=== PATIENT | male | born 1945 | race Caucasian/White ===

== ENCOUNTER 2019-02-06 09:32 | Day surgery (SDC) | payer MEDICARE, BC ==
[~2019-02-06 09:32] MED LIST: KETOROLAC TROMETHAMINE 0.45% 4 DROP/0.4 ML DROPERETTE OS PRN
[2019-02-06] MEDS: TROPICAMIDE 1% OPH SOLN 3 ML OS PRN ×3 (09:55→10:15)
[2019-02-06] MEDS: CYCLOPENTOLATE 0.2%/PHENYLEPHRINE 1% OPH SOLN 2 ML OS PRN ×3 (09:55→10:15)
[2019-02-06] MEDS: BESIFLOXACIN HCL 0.6% OPH SUSP 5 ML BOTTLE OS PRN ×4 (09:55→10:45)
[2019-02-06] MEDS: TETRACAINE HCL 0.5% OPH SOLN 4 ML OS PRN ×4 (09:55→10:24)
[2019-02-06] MEDS ORDERED: MIDAZOLAM 2 MG/2 ML INJ ONE (10:12)
[2019-02-06] MEDS ORDERED: ONDANSETRON HCL INJ/PF 4 MG/2 ML SDV ONE (10:12)
[2019-02-06] MEDS ORDERED: FENTANYL CITRATE INJ/PF 100 MCG/2 ML AMPUL ONE (10:13)
[2019-02-06] MEDS: EPINEPHRINE INJ/PF 1 MG/1 ML AMPULE ONE ×2 (10:34)
[2019-02-06] MEDS: LIDOCAINE 1% INJ-PF (10 MG/ML) 30 ML SDV ONE ×2 (10:34)
[2019-02-06] MEDS: CHONDR SU A NA/HYALUR INTRAOC KIT (SURGICARE) ONE ×2 (10:34)
[2019-02-06] MEDS: DORZOLAMIDE HCL 2%/TIMOLOL MALEAT 0.5% OPH SOLN 10 ML OS PRN ×2 (10:45)
[2019-02-06] MEDS: TOBRAMYCIN SULFATE/DEXAMETH OPH OINTMENT 3.5 GM ONE ×2 (10:45)
== END 2019-02-06 11:27 | disposition home or self-care (01) ==
LOC: SC 09:32
PROVIDERS: ATTEND Ophthalmology
DX: H25.12 Age-related nuclear cataract, left eye (principal); E03.9 Hypothyroidism, unspecified; Z85.828 Personal history of other malignant neoplasm of skin; Z79.899 Other long term (current) drug therapy
CPT/HCPCS: 66984; 00142; V2632; J2250; J3490 ×4; A9270; J0171; J3010; J2405; 142

== ENCOUNTER 2019-02-20 08:47 | Day surgery (SDC) | payer MEDICARE, BC ==
[~2019-02-20 08:47] MED LIST changes: +CHONDR SU A NA/HYALUR INTRAOC KIT (SURGICARE) ONE; +EPINEPHRINE INJ/PF 1 MG/1 ML AMPULE ONE; -KETOROLAC TROMETHAMINE 0.45% 4 DROP/0.4 ML DROPERETTE OS PRN; +LIDOCAINE 1% INJ-PF (10 MG/ML) 30 ML SDV ONE
[2019-02-20] MEDS: CYCLOPENTOLATE 0.2%/PHENYLEPHRINE 1% OPH SOLN 2 ML OD PRN ×5 (08:58→09:18)
[2019-02-20] MEDS: BESIFLOXACIN HCL 0.6% OPH SUSP 5 ML BOTTLE OD PRN ×5 (08:58→09:54)
[2019-02-20] MEDS: TROPICAMIDE 1% OPH SOLN 15 ML OD PRN ×5 (08:58→09:18)
[2019-02-20] MEDS: KETOROLAC TROMETHAMINE 0.45% 4 DROP/0.4 ML DROPERETTE OD PRN ×2 (08:59→09:00)
[2019-02-20] MEDS: TETRACAINE HCL 0.5% OPH SOLN 4 ML OD PRN ×4 (08:59→09:38)
[2019-02-20] MEDS ORDERED: MIDAZOLAM 2 MG/2 ML INJ ONE (09:19)
[2019-02-20] MEDS ORDERED: FENTANYL CITRATE INJ/PF 100 MCG/2 ML AMPUL ONE (09:19)
[2019-02-20] MEDS: DORZOLAMIDE HCL 2%/TIMOLOL MALEAT 0.5% OPH SOLN 10 ML OD PRN ×2 (09:41→09:54)
[2019-02-20] MEDS: TOBRAMYCIN SULFATE/DEXAMETH OPH OINTMENT 3.5 GM ONE ×2 (09:42→09:54)
== END 2019-02-20 10:35 | disposition home or self-care (01) ==
LOC: SC 08:47
PROVIDERS: ATTEND Ophthalmology
DX: H25.11 Age-related nuclear cataract, right eye (principal); Z98.42 Cataract extraction status, left eye; E03.9 Hypothyroidism, unspecified; Z79.899 Other long term (current) drug therapy
CPT/HCPCS: 00142; 66984; V2632; J2250; J3490 ×4; A9270; J0171; J3010; 142

== ENCOUNTER 2020-03-12 20:37 | Observation (INO) | payer OTHER, MEDICARE, BC ==
[2020-03-12] MEDS ORDERED: NORMAL SALINE 1000 ML 1,000 ML IV ONE (21:05)
[2020-03-12] MEDS ORDERED: ONDANSETRON HCL INJ/PF 4 MG/2 ML SDV IV ONE (21:08)
--- NOTE | 2020-03-12 21:08 | ER Document Report ---
ED General - General Chief Complaint: Nausea Stated Complaint: DIZZY/NAUSEA Time Seen by Provider: 03/12/20 20:54 Primary Care Provider: WILLIAM HERBERT MD [Primary Care Provider] - Follow up as needed TRAVEL OUTSIDE OF THE [place] IN LAST 30 DAYS: No - HPI Onset: Just prior to arrival Onset/Duration: Sudden Associated symptoms: Nonproductive cough, Nausea. denies: Vomiting Exacerbated by: Denies Relieved by: Denies Similar symptoms previously: Yes Notes: Patient is a 75-year-old male who presents with an episode of dizziness and nausea. Patient is a poor historian. He states that prior to arrival, he became lightheaded and nauseous. EMS stated that he was slumped over but was alert and oriented. Patient did not fall or hit his head. He denies any chest pain. He states that he had some congestion today and took Sudafed. Patient states he has a dry cough. No abdominal pain. No vomiting. No urinary symptoms. Denies any headaches. States that moving his head and his eyes makes him more dizzy. Denies ever being diagnosed with vertigo. Mentions that he has a financial cost analyst out of town who checked him out for possible arrhythmia as he has had this episode happen before. He is unsure of the diagnosis. Patient denies ever having an echocardiogram. - Related Data Allergies/Adverse Reactions: No Known Allergies Allergy (Verified 08/08/13 15:33) Past Medical History - General Information source: Patient - Social History Smoking Status: Unknown if Ever Smoked Family History: Reviewed & Not Pertinent - Past Medical History Cardiac Medical History: Denies: Hx Coronary Artery Disease, Hx Heart Attack, Hx Hypertension Pulmonary Medical History: Denies: Hx Asthma, Hx Bronchitis, Hx COPD, Hx Pneumonia Neurological Medical History: Denies: Hx Cerebrovascular Accident, Hx Seizures Endocrine Medical History: Reports: Hx Hypothyroidism Renal/ Medical History: Reports: Hx Benign Prostatic Hyperplasia GI Medical History: Reports: Hx Hiatal Hernia. Denies: Hx Hepatitis, Hx Ulcer Musculoskeletal Medical History: Denies Hx Arthritis Infectious Medical History: Denies: Hx Hepatitis Past Surgical History: Reports: Hx Abdominal Surgery - Esophageal surgery patient unsure exact etiology, Hx Appendectomy, Hx Herniorrhaphy. Denies: Hx Open Heart Surgery, Hx Pacemaker - Immunizations Hx Diphtheria, Pertussis, Tetanus Vaccination: No Review of Systems - Review of Systems Notes: CONSTITUTIONAL: No fever, fatigue or weight loss. SKIN: No rash. HENT: Positive for congestion. No ear pain, or sore throat. EYES: No recent vision problems or eye pain. ENDOCRINE: No thyroid problems. No polyuria or polydipsia. CARDIOVASCULAR: No chest pain or edema. RESPIRATORY: Positive for dry cough. No shortness of breath, congestion, or wheezing. GASTROINTESTINAL: No abdominal pain,vomiting, bloody stools or diarrhea. Positive for nausea. GENITOURINARY: No dysuria. MUSCULOSKELETAL: No joint pain or swelling. LYMPHATIC: No swollen glands. NEUROLOGIC: No seizures. No headache, focal weakness or sensory changes. Positive for lightheadedness. HEMATOLOGIC: No unusual bruising or bleeding. PSYCHIATRIC: No depression or anxiety. Physical Exam - Vital signs Vitals: Temp 97.9 F 03/12/20 20:38 - Notes Notes: VITAL SIGNS: Within normal limits. GENERAL: No acute distress, non-toxic appearance. Laying with his eyes closed. Appears fatigued. HEAD: Normal with no signs of head trauma. EYES: EOMI, conjunctiva normal, no discharge. Horizontal nystagmus noted. EARS: Hearing grossly intact. NOSE: Normal. NECK: Normal range of motion, no tenderness, supple, no lymphadenopathy, No adenopathy, no JVD. CHEST: Clear breath sounds bilaterally. No wheezes, rales, or rhonchi. CARDIAC: Regular rate and rhythm. S1 and S2, without murmurs, gallops, or rubs. VASCULAR: No Edema. Peripheral pulses normal and equal in all extremities. ABDOMEN: Normal and soft with no tenderness, no masses or pulsatile masses. GASTROINTESTINAL: Bowel sounds normal GENITOURINARY: Normal, No tenderness LYMPATHTIC: No lymphadenopathy noted. MUSCULOSKELETAL: Good range of motion of all major joints. Extremities without clubbing, cyanosis or edema. NEUROLOGICAL: Alert and oriented x 3. No focal sensory or strength deficits. Speech normal. Follows commands appropriately. PSYCHIATRIC: Normal Affect, judgement and mood. SKIN: Normal appearance with no rashes or lesions. Course - Re-evaluation Re-evalutation: 03/13/20 01:55 Patient has horizontal nystagmus. His symptoms are worse when he moves his eyes and his head. Patient's EKG looks nonacute. His lab work was also reviewed. His CT was negative for any acute findings. Patient was given Zofran and fluids. He was then given meclizine. His orthostatics were normal. On reassessment, patient is now able to open his eyes and seems to be more comfortable. However, he states that he still feels very uncomfortable walking due to the lightheadedness. As patient has not completely improved, I did recommend to keep him in the hospital for MRI and work-up for possible posterior stroke. Patient and his are in agreement. I discussed with the hospitalist and they are also in agreement. - Vital Signs Vital signs: Temp Pulse Resp BP Pulse Ox 97.9 F 83 16 137/78 H 93 03/13/20 02:34 03/12/20 20:52 03/13/20 02:34 03/13/20 02:34 03/13/20 02:34 - Laboratory Result Diagrams: 03/12/20 21:00 03/12/20 21:00 Laboratory results interpreted by me: 03/12/20 03/12/20 03/12/20 21:00 21:00 22:12 Lymph % (Auto) 8.8 L Seg Neutrophils % 80.8 H Glucose 170 H Creatine Kinase 38 L Urine Glucose (UA) 50 H - Diagnostic Test Radiology reviewed: Image reviewed, Reports reviewed - EKG Interpretation by Me EKG shows normal: Sinus rhythm Rate: Normal Rhythm: NSR When compared to previous EKG there are: No significant change Additional EKG results interpreted by me: 03/12/20 23:14 EKG interpreted by me. Sinus rhythm at a rate of 77. QTc 453. PVCs present. EKG is similar to previous. Discharge - Discharge Clinical Impression: Lightheaded, Nausea Condition: Stable Disposition: ADMITTED OBSERVATION Admitting Provider: Deborah (Hospitalist) Unit Admitted: Telemetry Referrals: WILLIAM HERBERT MD [Primary Care Provider] - Follow up as needed
[2020-03-12 21:25] LABS: ABSOLUTE BASOPHILS # (AUTO) 0.1 10^3/uL (0.0-0.2); ABSOLUTE EOSINOPHILS # (AUTO) 0.2 10^3/uL (0.0-0.6); ABSOLUTE LYMPHOCYTES (AUTO) 0.8 10^3/uL (0.5-4.7); ABSOLUTE MONOCYTES (AUTO) 0.7 10^3/uL (0.1-1.4); ABSOLUTE NEUT (AUTO) 7.4 10^3/uL (1.7-8.2); EOSINOPHILS % (AUTO) 1.7 % (0-6); HEMATOCRIT 42.3 % (37.9-51.0); HEMOGLOBIN 14.5 g/dL (13.5-17.0); LYMPHOCYTES % (AUTO) 8.8 % (13-45); MEAN CORPUSCULAR HEMOGLOBIN 31.4 pg (27.0-33.4); MEAN CORPUSCULAR HGB CONC 34.3 g/dL (32.0-36.0); MEAN CORPUSCULAR VOLUME 92 fl (80-97); MONOCYTES % (AUTO) 7.7 % (3-13); PLATELET COUNT 186 10^3/uL (150-450); RED BLOOD COUNT 4.62 10^6/uL (4.35-5.55); RED CELL DISTRIBUTION WIDTH 13.1 % (11.5-14.0); SEGMENTED NEUTROPHILS % (AUTO) 80.8 % (42-78); TOTAL CELLS COUNTED % (AUTO) 100 %; WHITE BLOOD COUNT 9.1 10^3/uL (4.0-10.5)
[2020-03-12 21:41] LABS: ALBUMIN 3.9 g/dL (3.5-5.0); ALKALINE PHOSPHATASE 49 U/L (38-126); ANION GAP 10 (5-19); ASPARTATE AMINO TRANSFERASE 19 U/L (17-59); BILIRUBIN,DIRECT 0.2 mg/dL (0.0-0.4); BILIRUBIN,TOTAL 0.5 mg/dL (0.2-1.3); BLOOD UREA NITROGEN 19 mg/dL (7-20); CALCIUM 9.1 mg/dL (8.4-10.2); CARBON DIOXIDE 25 mmol/L (22-30); CHLORIDE 104 mmol/L (98-107); CREATINE KINASE 38 U/L (55-170); GLUCOSE 170 mg/dL (75-110); POTASSIUM 4.1 mmol/L (3.6-5.0); TOTAL PROTEIN 6.5 g/dL (6.3-8.2)
[2020-03-12 21:53] LABS: CREATINE KINASE MB 0.78 ng/mL (<4.55); TROPONIN I < 0.012 ng/mL
--- NOTE | 2020-03-12 22:20 | RADIOLOGY REPORT (SQ) ---
CT HEAD WITHOUT IV CONTRAST HISTORY: Dizziness. COMPARISON: 01/30/2016 TECHNIQUE: CT scan of the brain was performed without IV contrast. This exam was performed according to our departmental dose-optimization program, which includes automated exposure control, adjustment of the mA and/or kV according to patient size and/or use of iterative reconstruction technique. FINDINGS: There are scattered areas of hypoattenuation within the periventricular white matter, which likely represent chronic microvascular ischemia. No evidence of acute infarction, intracranial hemorrhage, extra-axial fluid collection, or midline shift. No air-fluid levels are seen in the paranasal sinuses to suggest acute sinusitis. No depressed skull fracture. IMPRESSION: 1. No acute intracranial findings. 2. Senescent changes with chronic microvascular ischemia.
--- NOTE | 2020-03-12 22:32 | RADIOLOGY REPORT (SQ) ---
CLINICAL INDICATION: AMS, cough. TECHNIQUE: A single portable AP view was obtained of the chest at 2155 hours. COMPARISON: January 30, 2016. FINDINGS: The cardiomediastinal silhouette is prominent but stable. The lungs are grossly clear. No evidence of effusion or pneumothorax. Chronic parenchymal lung change. IMPRESSION: No evidence of active intrathoracic disease.
[2020-03-12 22:59] LABS: APPEARANCE,URINE CLEAR; BILIRUBIN,URINE NEGATIVE (NEGATIVE); COLOR,URINE YELLOW; GLUCOSE, URINE 50 mg/dL (NEGATIVE); KETONES,URINE NEGATIVE (NEGATIVE); LEUKOCYTE ESTERASE,URINE NEGATIVE (NEGATIVE); NITRITE,URINE NEGATIVE (NEGATIVE); PROTEIN,URINE NEGATIVE (NEGATIVE); URINE SPECIFIC GRAVITY 1.018; UROBILINOGEN,URINE NEGATIVE mg/dL (<2.0)
[2020-03-12] MEDS ORDERED: MECLIZINE HCL 25 MG TABLET PO ONE (23:30)
--- NOTE | 2020-03-12 23:35 | EKG REPORT ---
SEVERITY:- ABNORMAL ECG - SINUS RHYTHM INFERIOR INFARCT, AGE INDETERMINATE CONSIDER POSTERIOR WALL INVOLVEMENT : Confirmed by: Katherine Aranda MD 12-Mar-2020 23:34:36
--- NOTE | 2020-03-13 03:12 | PDOC H&P ---
History of Present Illness Admission Date/PCP: WILLIAM HERBERT MD Patient complains of: Vertigo History of Present Illness: KALEIGH LOVELL is a 75 year old male with a limited past medical history. He has a history of benign prostatic hyperplasia as well as hypothyroidism. He states that he had a fairly abrupt onset of dizziness with nausea. He felt okay yesterday morning. He began to feel dizzy and weak. He had sinus congestion at approximately 5:00 in the afternoon. He took a dose of Sudafed and he states that his nose was clear. His dizziness did progress until he got to the point where he could not move his head or open his eyes without severe nausea. Evaluation in the emergency department revealed chemistries and CBC were unremarkable. CT scan of the head showed some microvascular changes consistent for his age. The patient was laying extremely still on the stretcher with his eyes closed not wanting to move his head at all. He will be admitted to the hospitalist service on observation status. This is likely vertigo. Past Medical History Cardiac Medical History: Denies: Coronary Artery Disease, Myocardial Infarction, Hypertension Pulmonary Medical History: Denies: Asthma, Bronchitis, Chronic Obstructive Pulmonary Disease (COPD), Pneumonia Neurological Medical History: Denies: Seizures Endocrine Medical History: Reports: Hypothyroidism GI Medical History: Reports: Hiatal Hernia Denies: Hepatitis Musculoskeltal Medical History: Denies: Arthritis Psychiatric Medical History: Denies: Alcohol Dependency Hematology: Denies: Anemia, Sickle Cell Disease Past Surgical History Past Surgical History: Reports: Appendectomy, Herniorrhaphy Denies: Pacemaker Social History Information Source: Patient, Relative Lives with: Spouse/Significant other Smoking Status: Former Smoker Electronic Cigarette use?: No Frequency of Alcohol Use: None Hx Recreational Drug Use: No Hx Prescription Drug Abuse: No - Advance Directive Resuscitation Status: Full Code Surrogate healthcare decision maker:: Patient's Family History Family History: Reviewed & Not Pertinent Parental Family History Reviewed: Yes Children Family History Reviewed: Yes Sibling(s) Family History Reviewed.: Yes Medication/Allergy Home Medications: Levothyroxine Sodium [Synthroid 0.025 mg Tablet] 0.025 mg PO QAM 03/28/13 Finasteride [Proscar 5 mg Tablet] 5 mg PO QAM 01/31/19 Tamsulosin HCl [Flomax] 0.4 mg PO QAM 01/31/19 Inulin/Chromium Picolinate [Fiber Gummies] 1 each PO QAM 03/13/20 Allergies/Adverse Reactions: No Known Allergies Allergy (Verified 08/08/13 15:33) Review of Systems All systems: reviewed and no additional remarkable complaints except as stated Constitutional: PRESENT: fatigue Gastrointestinal: PRESENT: nausea, vomiting Neurological: PRESENT: dizziness, other - Lightheaded Physical Exam Vital Signs: Temp Pulse Resp BP Pulse Ox 97.9 F 83 16 137/78 H 93 03/13/20 02:34 03/12/20 20:52 03/13/20 02:34 03/13/20 02:34 03/13/20 02:34 Intake & Output 03/11/20 03/12/20 03/13/20 06:59 06:59 06:59 Intake Total 1000 Balance 1000 Weight 80.7 kg General appearance: PRESENT: cooperative, well-developed, well-nourished, other - Moderate distress Head exam: PRESENT: atraumatic, normocephalic Eye exam: PRESENT: nystagmus - Only open his eyes briefly Ear exam: PRESENT: normal external ear exam. ABSENT: bleeding, drainage Respiratory exam: PRESENT: clear to auscultation brittani, symmetrical, unlabored. ABSENT: rales, rhonchi, tachypnea, wheezes Cardiovascular exam: PRESENT: RRR, +S1, +S2, systolic murmur - 3/6. ABSENT: bradycardia, diastolic murmur, irregular rhythm GI/Abdominal exam: PRESENT: normal bowel sounds, soft. ABSENT: distended, guarding, tenderness Rectal exam: PRESENT: deferred Gentrourinary exam: ABSENT: indwelling catheter Extremities exam: ABSENT: pedal edema Musculoskeletal exam: PRESENT: normal inspection. ABSENT: ambulatory Neurological exam: PRESENT: alert, awake, oriented to person, oriented to place, oriented to time, oriented to situation Psychiatric exam: PRESENT: flat affect. ABSENT: agitated, anxious Focused psych exam: ABSENT: delusional, paranoid, restlessness Skin exam: PRESENT: dry, normal color, warm. ABSENT: rash Results Laboratory Results: 03/12/20 21:00 03/12/20 21:00 03/12/20 03/12/20 03/12/20 21:00 21:00 22:12 WBC 9.1 RBC 4.62 Hgb 14.5 Hct 42.3 MCV 92 MCH 31.4 MCHC 34.3 RDW 13.1 Plt Count 186 Seg Neutrophils % 80.8 H Sodium 139.0 Potassium 4.1 Chloride 104 Carbon Dioxide 25 Anion Gap 10 BUN 19 Creatinine 0.88 Est GFR ( Amer) > 60 Glucose 170 H Calcium 9.1 Total Bilirubin 0.5 AST 19 Alkaline Phosphatase 49 Total Protein 6.5 Albumin 3.9 Urine Color YELLOW Urine Appearance CLEAR Urine pH 6.0 Ur Specific [place] 1.018 Urine Protein NEGATIVE Urine Glucose (UA) 50 H Urine Ketones NEGATIVE Urine Blood NEGATIVE Urine Nitrite NEGATIVE Ur Leukocyte Esterase NEGATIVE Urine WBC (Auto) 2 Urine RBC (Auto) 2 03/12/20 03/12/20 03/13/20 21:00 21:00 01:31 Creatine Kinase 38 L CK-MB (CK-2) 0.78 Troponin I < 0.012 < 0.012 Impressions: Head CT 03/12/20 21:05 IMPRESSION: 1. No acute intracranial findings. 2. Senescent changes with chronic microvascular ischemia. Chest X-Ray 03/12/20 21:06 IMPRESSION: No evidence of active intrathoracic disease. Assessment and Plan - Diagnosis (1) Vertigo Is this a current diagnosis for this admission?: Yes Plan: Will utilize scheduled meclizine and as needed Sudafed to look for improvement. It may take several days to be effective. (2) BPH (benign prostatic hyperplasia) Qualifiers: Lower urinary tract symptom presence: unspecified whether lower urinary tract symptoms present Qualified Code(s): N40.0 - Benign prostatic hyperplasia without lower urinary tract symptoms Is this a current diagnosis for this admission?: Yes Plan: Continue Flomax and finasteride. (3) Hypothyroid Qualifiers: Hypothyroidism type: unspecified Qualified Code(s): E03.9 - Hypothyroidism, unspecified Is this a current diagnosis for this admission?: Yes Plan: Continue levothyroxine - Time Time Spent with patient: 35 or more minutes Medications reviewed and adjusted accordingly: Yes Anticipated Discharge Disposition: Home, Self Care Anticipated Discharge Timeframe: within 48 hours
[2020-03-13] MEDS ORDERED: MAG HYDROX/AL HYDROX/SIMETH SUSP 30 ML UDCUP PO PRN (03:13)
[2020-03-13] MEDS ORDERED: ACETAMINOPHEN 325 MG TABLET PO PRN (03:13)
[2020-03-13] MEDS ORDERED: ONDANSETRON HCL INJ/PF 4 MG/2 ML SDV IV PRN (03:13)
[2020-03-13] MEDS ORDERED: RINGERS SOLUTION,LACTATED 1,000 ML IV PRN (03:13)
[2020-03-13] MEDS ORDERED: MECLIZINE HCL 25 MG TABLET PO PRN (03:13)
[2020-03-13] MEDS ORDERED: PSEUDOEPHEDRINE HCL 30 MG TABLET PO PRN (03:20)
[2020-03-13 06:31] LABS: ANION GAP 11 (5-19); BLOOD UREA NITROGEN 16 mg/dL (7-20); CALCIUM 8.9 mg/dL (8.4-10.2); CARBON DIOXIDE 22 mmol/L (22-30); CHLORIDE 105 mmol/L (98-107); GLUCOSE 156 mg/dL (75-110); POTASSIUM 4.3 mmol/L (3.6-5.0)
[2020-03-13] MEDS: PANTOPRAZOLE SODIUM 20 MG TABLET.DR PO SCH (06:33)
[2020-03-13] MEDS: LEVOTHYROXINE SODIUM 0.025 MG TABLET PO SCH (06:33)
[2020-03-13] MEDS ORDERED: ONDANSETRON HCL INJ/PF 4 MG/2 ML SDV IV ONE (11:17)
[2020-03-13] MEDS ORDERED: NORMAL SALINE 1000 ML 1,000 ML IV ONE (11:17)
[2020-03-13] MEDS: FINASTERIDE 5 MG TABLET PO SCH (11:33)
[2020-03-13] MEDS: ENOXAPARIN SODIUM INJ 40 MG/0.4 ML DISP.SYRIN SUBCUT SCH (11:33)
[2020-03-13] MEDS ORDERED: TAMSULOSIN HCL 0.4 MG CAP.SR.24H PO SCH (18:00)
[2020-03-13] MEDS: ACETAMINOPHEN 325 MG TABLET PO SCH (22:00)
[2020-03-13] MEDS: MECLIZINE HCL 25 MG TABLET PO SCH (22:01)
[2020-03-13] MEDS: NORMAL SALINE 1000 ML 1,000 ML IV PRN (22:02)
[2020-03-14] MEDS: ACETAMINOPHEN 325 MG TABLET PO SCH ×2 (06:45→14:38)
[2020-03-14] MEDS: LEVOTHYROXINE SODIUM 0.025 MG TABLET PO SCH (06:45)
[2020-03-14] MEDS: MECLIZINE HCL 25 MG TABLET PO SCH ×2 (06:45→14:38)
[2020-03-14] MEDS: PANTOPRAZOLE SODIUM 20 MG TABLET.DR PO SCH (06:46)
[2020-03-14] MEDS: NORMAL SALINE 1000 ML 1,000 ML IV PRN (06:46)
[2020-03-14] MEDS: FINASTERIDE 5 MG TABLET PO SCH (09:46)
[2020-03-14] MEDS: ENOXAPARIN SODIUM INJ 40 MG/0.4 ML DISP.SYRIN SUBCUT SCH (09:46)
--- NOTE | 2020-03-14 14:52 | RADIOLOGY REPORT (SQ) ---
EXAM DESCRIPTION: MRI HEAD WITHOUT IMAGES COMPLETED DATE/TIME: 03/14/2020 2:31 pm REASON FOR STUDY: rule out stroke (disequilibrium) COMPARISON: 03/12/2020 CT TECHNIQUE: Multiplanar imaging includes non-contrasted T1, T2, FLAIR, and diffusion with ADC map seq uences. Images stored on PACS. LIMITATIONS: None. FINDINGS: ANATOMY: No anomalies. Normal vascular flow voids. Pituitary fossa normal. CSF SPACES: Atrophy induced prominence of ventricles and CSF spaces. CEREBRUM: High signal intensity lesions scattered throughout the white matter on FLAIR imaging with d istribution suggesting micro-vascular ischemic changes. No evidence of hemorrhage, mass, or extraaxi al fluid collection. POSTERIOR FOSSA: No signal alteration. No hemorrhage. No edema, masses or mass effect. Internal rainer tory canals, cerebello-pontine angles, mastoids normal. DIFFUSION IMAGING: Negative for acute or sub-acute infarction. ORBITS: No masses. Globes normal. PARANASAL SINUSES: No fluid levels. Mucosa normal. OTHER: No other significant finding. IMPRESSION: Negative for acute or sub-acute infarction.ATROPHY AND CHRONIC MICRO-VASCULAR ISCHEMIC C HANGES. EVIDENCE OF ACUTE STROKE: NO. TECHNICAL DOCUMENTATION: JOB ID: [id number] [id number] 2010 [employer] All Rights Reserved Reading location - IP/workstation name: [email or web address]
--- NOTE | 2020-03-14 16:00 | PDOC DISCHARGE SUMMARY ---
Impression - Admit/DC Date/PCP Admission Date/Primary Care Provider: 03/13/20 03:20 WILLIAM HERBERT MD Discharge Date: 03/14/20 - Discharge Diagnosis (1) BPPV (benign paroxysmal positional vertigo) Is this a current diagnosis for this admission?: Yes (2) Unsteady gait when walking Is this a current diagnosis for this admission?: Yes (3) BPH (benign prostatic hyperplasia) Is this a current diagnosis for this admission?: Yes (4) Hypothyroid Is this a current diagnosis for this admission?: Yes (5) Nausea Is this a current diagnosis for this admission?: Yes (6) Vertigo Is this a current diagnosis for this admission?: Yes - Assessment Summary: Mr. Kaleigh Hollingsworth is a 75 M with PMH of BPH and hypothyroidism who presented with sudden onset of vertigo with associated nausea. On exam, he had nystagmus when looking left but an otherwise normal neurological exam. MRI brain showed no evidence of acute stroke. He was treated with IVF, Zofran and Meclizine with excellent response. He was referred to outpatient PT for Sophie maneuver. MRI brain was notable for evidence of chronic microvascular ischemic changes, which were discussed with the patient and his . He was started on daily baby aspirin and statin therapy. He will follow up with PCP in 1-2 weeks. He is now stable for discharge home. - Additional Information Resuscitation Status: Full Code Discharge Diet: Regular Discharge Activity: Activity As Tolerated Referrals: WILLIAM HERBERT MD [Primary Care Provider] - Follow up as needed Prescriptions: Meclizine HCl [Antivert 25 mg Tablet] 25 mg PO TIDP PRN #90 tablet PRN Reason: Dizziness Aspirin [Aspir-Low] 81 mg PO DAILY #30 tablet. Atorvastatin Calcium [Lipitor 20 mg Tablet] 20 mg PO QHS #90 tablet Home Medications: Levothyroxine Sodium [Synthroid 0.025 mg Tablet] 0.025 mg PO QAM 03/28/13 Finasteride [Proscar 5 mg Tablet] 5 mg PO QAM 01/31/19 Tamsulosin HCl [Flomax] 0.4 mg PO QAM 01/31/19 Inulin/Chromium Picolinate [Fiber Gummies] 1 each PO QAM 03/13/20 Aspirin [Aspir-Low] 81 mg PO DAILY #30 tablet. 03/14/20 Atorvastatin Calcium [Lipitor 20 mg Tablet] 20 mg PO QHS #90 tablet 03/14/20 Meclizine HCl [Antivert 25 mg Tablet] 25 mg PO TIDP PRN #90 tablet 03/14/20 History of Present Illiness History of Present Illness: KALEIGH HOLLINGSWORTH is a 75 year old male Physical Exam Vital Signs: Temp Pulse Resp BP Pulse Ox 98.1 F 71 16 126/77 H 99 03/14/20 15:08 03/14/20 15:08 03/14/20 15:08 03/14/20 15:08 03/14/20 15:08 Intake & Output 03/13/20 03/14/20 03/15/20 06:59 06:59 06:59 Intake Total 1000 1992 Balance 1000 1992 Weight 80.7 kg 73.7 kg Results Laboratory Results: WBC 9.1 10^3/uL (4.0-10.5) 03/12/20 21:00 RBC 4.62 10^6/uL (4.35-5.55) 03/12/20 21:00 Hgb 14.5 g/dL (13.5-17.0) 03/12/20 21:00 Hct 42.3 % (37.9-51.0) 03/12/20 21:00 MCV 92 fl (80-97) 03/12/20 21:00 MCH 31.4 pg (27.0-33.4) 03/12/20 21:00 MCHC 34.3 g/dL (32.0-36.0) 03/12/20 21:00 RDW 13.1 % (11.5-14.0) 03/12/20 21:00 Plt Count 186 10^3/uL (150-450) 03/12/20 21:00 Lymph % (Auto) 8.8 % (13-45) L 03/12/20 21:00 [place] % (Auto) 7.7 % (3-13) 03/12/20 21:00 Eos % (Auto) 1.7 % (0-6) 03/12/20 21:00 Baso % (Auto) 1.0 % (0-2) 03/12/20 21:00 Absolute Neuts (auto) 7.4 10^3/uL (1.7-8.2) 03/12/20 21:00 Absolute Lymphs (auto) 0.8 10^3/uL (0.5-4.7) 03/12/20 21:00 Absolute Monos (auto) 0.7 10^3/uL (0.1-1.4) 03/12/20 21:00 Absolute Eos (auto) 0.2 10^3/uL (0.0-0.6) 03/12/20 21:00 Absolute Basos (auto) 0.1 10^3/uL (0.0-0.2) 03/12/20 21:00 Seg Neutrophils % 80.8 % (42-78) H 03/12/20 21:00 Sodium 137.5 mmol/L (137-145) 03/13/20 05:14 Potassium 4.3 mmol/L (3.6-5.0) 03/13/20 05:14 Chloride 105 mmol/L (98-107) 03/13/20 05:14 Carbon Dioxide 22 mmol/L (22-30) 03/13/20 05:14 Anion Gap 11 (5-19) 03/13/20 05:14 BUN 16 mg/dL (7-20) 03/13/20 05:14 Creatinine 0.71 mg/dL (0.52-1.25) 03/13/20 05:14 Est GFR ( Amer) > 60 (>60) 03/13/20 05:14 Est GFR (MDRD) Non-Af > 60 (>60) 03/13/20 05:14 Glucose 156 mg/dL (75-110) H 03/13/20 05:14 Calcium 8.9 mg/dL (8.4-10.2) 03/13/20 05:14 Magnesium 2.0 mg/dL (1.6-2.3) 03/13/20 05:14 Total Bilirubin 0.5 mg/dL (0.2-1.3) 03/12/20 21:00 Direct Bilirubin 0.2 mg/dL (0.0-0.4) 03/12/20 21:00 Neonat Total Bilirubin Not Reportable 03/12/20 21:00 Neonat Direct Bilirubin Not Reportable 03/12/20 21:00 Neonat Indirect Bili Not Reportable 03/12/20 21:00 AST 19 U/L (17-59) 03/12/20 21:00 ALT 14 U/L (<50) 03/12/20 21:00 Alkaline Phosphatase 49 U/L (38-126) 03/12/20 21:00 Creatine Kinase 38 U/L (55-170) L 03/12/20 21:00 CK-MB (CK-2) 0.78 ng/mL (<4.55) 03/12/20 21:00 Troponin I < 0.012 ng/mL 03/13/20 01:31 Total Protein 6.5 g/dL (6.3-8.2) 03/12/20 21:00 Albumin 3.9 g/dL (3.5-5.0) 03/12/20 21:00 TSH 1.36 uIU/mL (0.47-4.68) 03/12/20 21:00 Urine Color YELLOW 03/12/20 22:12 Urine Appearance CLEAR 03/12/20 22:12 Urine pH 6.0 (5.0-9.0) 03/12/20 22:12 Ur Specific [place] 1.018 03/12/20 22:12 Urine Protein NEGATIVE mg/dL (NEGATIVE) 03/12/20 22:12 Urine Glucose (UA) 50 mg/dL (NEGATIVE) H 03/12/20 22:12 Urine Ketones NEGATIVE mg/dL (NEGATIVE) 03/12/20 22:12 Urine Blood NEGATIVE (NEGATIVE) 03/12/20 22:12 Urine Nitrite NEGATIVE (NEGATIVE) 03/12/20 22:12 Urine Bilirubin NEGATIVE (NEGATIVE) 03/12/20 22:12 Urine Urobilinogen NEGATIVE mg/dL (<2.0) 03/12/20 22:12 Ur Leukocyte Esterase NEGATIVE (NEGATIVE) 03/12/20 22:12 Urine WBC (Auto) 2 /HPF 03/12/20 22:12 Urine RBC (Auto) 2 /HPF 03/12/20 22:12 Urine Bacteria (Auto) TRACE /HPF 03/12/20 22:12 Squamous Epi Cells Auto <1 /HPF 03/12/20 22:12 Urine Mucus (Auto) RARE /LPF 03/12/20 22:12 Urine Ascorbic Acid NEGATIVE (NEGATIVE) 03/12/20 22:12 03/12/20 03/13/20 21:00 01:31 CK-MB (CK-2) 0.78 Troponin I < 0.012 < 0.012 Impressions: Head CT 03/12/20 21:05 IMPRESSION: 1. No acute intracranial findings. 2. Senescent changes with chronic microvascular ischemia. Chest X-Ray 03/12/20 21:06 IMPRESSION: No evidence of active intrathoracic disease. Head MRI 03/14/20 00:00 IMPRESSION: Negative for acute or sub-acute infarction.ATROPHY AND CHRONIC MICRO-VASCULAR ISCHEMIC CHANGES. EVIDENCE OF ACUTE STROKE: NO. Stroke Is this a Stroke Patient?: No Acute Heart Failure Is this a Heart Failure Patient?: No
[2020-03-14 16:01] VITALS: BP 126/63
== END 2020-03-14 17:01 | disposition home health service (06) ==
LOC: ER 20:37 → EH 03-13 03:20 → 4W 03-13 08:53
PROVIDERS: ADMIT Hospitalist; ATTEND Hospitalist
DX: H81.10 Benign paroxysmal vertigo, unspecified ear (principal); R26.81 Unsteadiness on feet; N40.0 Benign prostatic hyperplasia without lower urinary tract symptoms; E03.9 Hypothyroidism, unspecified; R11.0 Nausea; R05 Cough; Z79.82 Long term (current) use of aspirin; Z79.899 Other long term (current) drug therapy; Z87.891 Personal history of nicotine dependence
CPT/HCPCS: 93005; 99285; 36415 ×2; 82553; 82550; 83735; 84443; 85025; 80048; 80053; 81001; 84484 ×2; 70551; 71045; 70450; 93010; 97530; 97163; G0378 ×2; J1650 ×2; J3490 ×3; J2405 ×2; J7030 ×3